=== PATIENT | male | born 1960 | race Caucasian/White ===

== ENCOUNTER 2021-11-10 01:55 | Day surgery (SDC) | payer BC, SELFPAY ==
[2021-10-27 15:50] VITALS: BMI 24.4
[2021-11-10 08:07] VITALS: BP 116/85; PULSE 68; RESP 18; TEMP 36.2; O2SAT 99; BMI 24.5
[2021-11-10] MEDS: LACTATED RINGERS 1,000 ML 150 ML IV CONT (08:18)
--- NOTE | 2021-11-10 08:23 | WPDGICN ---
Assessment and Plan Assessment and plan (1) Encounter for screening colonoscopy: Code(s): Z12.11 - Encounter for screening for malignant neoplasm of colon Status: Acute Assessment and Plan: Patient presents today for screening colonoscopy. Further recommendations will be given after endoscopy. GI Consult Note Consult date/time: 11/10/21 08:23 HPI: Faustino Araujo is a 61 year old male Presents for screening colonoscopy. Patient's current weight appetite and bowel movements are normal. He denies abdominal pain. He has had no bleeding. Family history is noncontributory. Patient did have benign hyperplastic polyps removed from the colon 10 years ago. He presents today for neoplasia screening. Review of Systems Review of Systems: All systems reviewed & are unremarkable except as noted in HPI and below PMFSH Family History Family History Father Patient's father is Grandparent Family history of malignant neoplasm Family history of malignant neoplasm of breast in first degree relative Mother Family history of malignant neoplasm of breast in first degree relative Social History Social History Smoking status: Never smoker Alcohol intake: current Drinks per week: 1 Substance use: never Substance use type: does not use Living arrangements: with family Spiritual care concerns: No Meds Home Medications and Allergies Home Medications Medication Instructions Recorded Confirmed Type fluticasone propionate 50 See Rx Instructions .ROUTE 09/01/21 10/27/21 Rx mcg/actuation nasal .COMPLEX #48 g spray,suspension tadalafil 20 mg tablet 20 mg PO DAILY PRN #10 tablet 09/10/21 10/27/21 Rx Allergies Allergy/AdvReac Type Severity Reaction Status Date / Time No Known Allergies Allergy Verified 11/10/21 08:06 Vital Signs Vital Signs - 24 hr 11/10/21 08:07 Temperature 97.1 F L Pulse Rate 68 Respiratory Rate 18 Blood Pressure 116/85 Pulse Oximetry 99 Exam Narrative: Physical exam reveals patient to be alert. Vital sided stable. HEENT exam is unremarkable. Patient is anicteric. Lungs are clear to auscultation and percussion. Heart is without murmur or extra sounds. Abdominal exam bowel sounds are present soft nontender with no organomegaly. Digital external rectal exam is normal.
--- NOTE | 2021-11-10 08:27 | P.PNAN_ITS ---
Anes - Initial Pre Proc Eval Procedure: Operation Date: 11/10/21 09:00 Proposed Procedures p Screening Colonoscopy - Juan Antonio Parks MD Date/Time: 11/10/21 08:27 Surgeon: Juan Antonio Parks MD Pre Op Diagnosis: neoplasm screening Patient Data Age: 61 Gender: M Height: 1.75 m Weight: 75.5 kg Last Vital Signs Temp 36.2 C L 11/10/21 08:07 Pulse 68 11/10/21 08:07 Resp 18 11/10/21 08:07 BP 116/85 11/10/21 08:07 Pulse Ox 99 11/10/21 08:07 Allergies Allergy/AdvReac Type Severity Reaction Status Date / Time No Known Allergies Allergy Verified 11/10/21 08:06 Home Medications Medication Instructions Recorded Confirmed Type fluticasone propionate 50 See Rx Instructions .ROUTE 09/01/21 10/27/21 Rx mcg/actuation nasal .COMPLEX #48 g spray,suspension tadalafil 20 mg tablet 20 mg PO DAILY PRN #10 tablet 09/10/21 10/27/21 Rx Patient hx anesthesia problems: none Family hx anesthesia problems: none Results Review: All pre-operative results and documents have been reviewed as part of the pre-operative evaluation. [facility] Family History Family History Father Patient's father is Grandparent Family history of malignant neoplasm Family history of malignant neoplasm of breast in first degree relative Mother Family history of malignant neoplasm of breast in first degree relative Social History Social History Smoking status: Never smoker Alcohol intake: current Drinks per week: 1 Substance use: never Substance use type: does not use Living arrangements: with family Spiritual care concerns: No Anes - Eval Final PreProcedure Day of Procedure 11/10/21 08:27 Patient weight: normal Heart: regular rate and rhythm Lungs: clear to auscultation Airway: Mallampati scale class II Neurological: alert and oriented Last oral intake: >/= 8 hours ASA classification: I Emergent: no Anesthetic plan: proceed Anesthesia type and monitoring: general GIVS and standard monitoring Results Review: All pre-operative results and documents have been reviewed as p art of the pre-operative evaluation. Informed Consent: The patient's anesthetic plan and its attendant risks and benefits were discussed with the patient/family/POA. Questions were solicited and answers provided to the satisfaction of the patient/family/POA.
[2021-11-10 09:09] VITALS: BP 116/73; PULSE 66; RESP 21; O2SAT 96
[2021-11-10 09:19] VITALS: BP 121/82; PULSE 58; RESP 11; O2SAT 98
[2021-11-10 09:29] VITALS: BP 115/82; PULSE 58; RESP 18; O2SAT 100
== END 2021-11-10 09:30 | disposition home or self-care (01) ==
PROVIDERS: PCP Family Medicine; Visit Provider Internal Medicine Gastroenterology
PROC: 0DJD8ZZ Inspection of Lower Intestinal Tract, Via Natural or Artificial Opening Endoscopic (ICD-10-PCS; CPT 45378; principal; 2021-11-10 09:00)
DX: Z12.11 Encounter for screening for malignant neoplasm of colon (principal); K64.8 Other hemorrhoids; K62.1 Rectal polyp; K63.5 Polyp of colon
CPT/HCPCS: 45380; 45385; 88305; J2704; J7120

== ENCOUNTER → 2022-07-31 09:22 | Outpatient (CLI) | payer BC, SELFPAY ==
--- NOTE | ~2022-07-31 | XR_ITS ---
XR finger 2nd LT min 2V DATE: 07/31/2022 10:10 INDICATION: Pain. Loss of range of motion of second digit proximal interphalangeal joint. TECHNIQUE: 3 views of second digit COMPARISON: None FINDINGS: No fracture or dislocation, periosteal reaction or bone destruction, joint space narrowing. Minimal spurring of the distal interphalangeal joint consistent with mild osteoarthritis. IMPRESSION: Mild osteoarthritis Reviewed, dictated and finalized at location A. IMPRESSION: Mild osteoarthritis
== END ==
PROVIDERS: PCP Physician Assistant; Visit Provider Physician Assistant
DX: M79.645 Pain in left finger(s) (principal); M19.042 Primary osteoarthritis, left hand
CPT/HCPCS: 73140